=== PATIENT | male | born 1990 | race Caucasian/White ===

== ENCOUNTER 2019-11-05 11:30 | Emergency (ER) | payer BC, SELFPAY ==
[2019-11-05 11:33] VITALS: BP 113/70; PULSE 76; RESP 16; TEMP 36.3; O2SAT 100
--- NOTE | 2019-11-05 11:57 | ED.GENADULT ---
HPI - General Adult General Chief complaint: Upper Respiratory Infection Stated complaint: sinus issues History of Present Illness HPI narrative: Patient is a 28-year-old male presents the urgent care via POV for evaluation of allergy symptoms that began approximately 2 days ago. Additionally, he reports rhinorrhea and nasal congestion. He reports rhinorrhea is light yellow in color. Claritin improves symptoms. Weather changes worsen symptoms. Patient reports a history of seasonal allergies. Today symptoms are identical to previous allergy symptoms. Patient states, I would not be here if I did not need a work note . He is requesting documentation for work absence. Denies fever, chills, sweats, malaise, change in appetite, poor p.o. intake, recent weight loss, severe persistent headache, LOC, dizziness, lymphadenopathy, vision changes, ear pain/drainage, difficulty swallowing, hoarseness, sore throat, abdominal pain, nausea, vomiting, diarrhea, cough, shortness of breath, chest pain, heart palpitations/murmurs. Related Data Home Medications Medication Instructions Recorded Confirmed No Home Medications 11/05/19 11/05/19 Allergies Allergy/AdvReac Type Severity Reaction Status Date / Time No Known Allergies Allergy Verified 07/29/19 18:24 Review of Systems Review of Systems: Narrative: All other systems reviewed and are negative PMFSH Comments I have reviewed and agree with the patient's past medical, surgical, social, and family hx as documented by the RN. There is no relevant family history pertinent to the presenting complaint. Exam Narrative: Exam Narrative: GENERAL: Well-appearing, well-nourished, and in no acute distress. HEAD: Normocephalic, atraumatic. No sinus tenderness or facial swelling appreciated. EYES: PERRLA and EOMI. No evidence of erythema, swelling, or drainage. ENT: Bilateral external ears and ear canals normal. Bilateral TMs are normal.No TM perforation. Nares clear, no rhinorrhea or epistaxis. Bilateral turbinates without erythema/ swelling. Mucous membranes moist and pink. Uvula is midline without erythema and swelling. No evidence of petechial rash, cobblestoning, lesions, ulcers, erythema, swelling, exudates, peritonsillar abscess, tenting, or drooling. Breath odor and voice normal. NECK: Supple. No Lymphadenopathy or nuchal rigidity appreciated. CHEST: Bilateral lung vásquez are clear to auscultation. No respiratory distress. No evidence of cough or pleuritic cp upon examination. HEART: Regular rate and rhythm. No murmur, gallop, or rub heard. EXTREMITIES: Normal range of motion. No edema. SKIN: Warm, dry, no rash. NEURO: No focal deficits. Alert and oriented x3. Course Vital Signs Vital signs: Vital Signs Temperature 97.4 F L 11/05/19 11:33 Pulse Rate 76 11/05/19 11:33 Respiratory Rate 16 11/05/19 11:33 Blood Pressure 113/70 11/05/19 11:33 Pulse Oximetry 100 11/05/19 11:33 Temperature 97.4 F L 11/05/19 11:33 Pulse Rate 76 11/05/19 11:33 Respiratory Rate 16 11/05/19 11:33 Blood Pressure 113/70 11/05/19 11:33 Pulse Oximetry 100 11/05/19 11:33 Medical Decision Making Differential Diagnosis Differential Diagnosis: Allergic rhinitis, ABRS, acute viral sinusitis, strep pharyngitis, nasopharyngitis, bronchitis, pneumonia, AOM, otitis externa, viral URI, influenza Medical Records Medical records reviewed: Yes I reviewed the patient's medical records. Vital Signs Vital Signs: Vital Signs Temperature 97.4 F L 11/05/19 11:33 Pulse Rate 76 11/05/19 11:33 Respiratory Rate 16 11/05/19 11:33 Blood Pressure 113/70 11/05/19 11:33 Pulse Oximetry 100 11/05/19 11:33 Temperature 97.4 F L 11/05/19 11:33 Pulse Rate 76 11/05/19 11:33 Respiratory Rate 16 11/05/19 11:33 Blood Pressure 113/70 11/05/19 11:33 Pulse Oximetry 100 11/05/19 11:33 Critical Care Time Critical Care Time Critical Care Time: No Discha
== END 2019-11-05 12:01 | disposition home or self-care (01) ==
PROVIDERS: Emergency Provider Nurse Practitioner Family
DX: J30.9 Allergic rhinitis, unspecified (principal)
CPT/HCPCS: 99213; G0463